=== PATIENT | male | born 1990 | race Caucasian/White ===

== ENCOUNTER 2018-12-30 11:01 | Emergency (ER) | payer MEDICAID ==
[~2018-12-30] VITALS: Ht 172.7 cm; Wt 108.0 kg
--- NOTE | 2018-12-30 11:54 | NUR ---
PT STATED THAT HE HAS HAD A COUGH FOR 5 DAYS. VOMITED PURPLE STUFF TODAY AFTER DRINKING A MONSTER. PT IS ALERT, ORIENTED, WITH NAD. PROVIDER AT BEDSIDE.
[2018-12-30] MEDS ORDERED: IBUPROFEN 600 MG TABLET PO ONE (12:30)
[2018-12-30] MEDS ORDERED: IBUPROFEN 200 MG TABLET ONE (12:34)
--- NOTE | 2018-12-30 12:38 | NUR ---
REPORT TAKEN FROM ERA DALEY. PT MEDICATED PER EMAR, TOLERATED WELL. PT A&O, RESPS EVEN AND UNLABORED, AWAITING FLU RESULTS AND DISPO.
[2018-12-30 13:13] LABS: RAPID INFLUENZA A Negative (Negative); RAPID INFLUENZA B Negative (Negative)
[2018-12-30 13:43] VITALS: BP 114/66
--- NOTE | 2018-12-30 13:43 | NUR ---
PT GIVEN DC INSTRUCTIONS AND SCRIPT, EDUCATED REGARDING RX FOR TESSALON AND FLONASE. PT A&O, RESPS EVEN AND UNLABORED. AMB TO DC DESK WITH STEADY GAIT, NADN AT DC.
== END 2018-12-30 13:44 | disposition home or self-care (01) ==
LOC: ED 13:33
DX: J06.9 Acute upper respiratory infection, unspecified (principal); J45.909 Unspecified asthma, uncomplicated; F17.210 Nicotine dependence, cigarettes, uncomplicated
CPT/HCPCS: 71046; 87400; 99284